=== PATIENT | female | born 1990 | race Asian ===

== ENCOUNTER 2017-04-15 13:12 | Emergency (ER) | payer OTHER ==
[2017-04-15] MEDS ORDERED: NS 0.9% 1000 ML* 1,000 ML IV ONE (15:00)
[2017-04-15] MEDS ORDERED: Ondansetron ODT TAB* 4 MG PO ONE ×2 (15:01→15:40)
[2017-04-15] MEDS ORDERED: Oseltamivir CAP* 75 MG PO ONE (15:39)
[2017-04-15 15:44] VITALS: BP 113/70
--- NOTE | 2017-04-15 17:02 | UC ---
Micheal Hoff Stephanie, scribed for Michele Cleary MD on 04/15/17 at 1539 . FLU HPI - HPI Summary HPI Summary: The pt is a 26 y/o F presenting to with c/o dizziness that began yesterday. The pt reports prior influenza-like symptoms such as fever, body aches, sore throat, nausea, blurred visions when ambulating, abd pain, decreased oral intake and diarrhea that began 1 week ago. The pt denies lightheadedness or blood with the diarrhea. Dizziness is alleviated by rest. - History of Current Complaint Chief Complaint: UCGeneralIllness Stated Complaint: COUGH, CONGESTION C Time Seen by Provider: 04/15/17 14:53 Hx Obtained From: Patient Hx Last Menstrual Period: 03/2017 ?: No Onset/Duration: Lasting Days - 1, Still Present Pain Intensity: 0 Pain Scale Used: 0-10 Numeric Associated Signs & Symptoms: Positive: Diarrhea. Negative: Fever - not presently - Allergy/Home Medications Allergies/Adverse Reactions: Allergies Allergy/AdvReac Type Severity Reaction Status Date / Time Penicillins Allergy Unknown Verified 04/15/17 13:22 Reaction Details PMH/Surg Hx/FS Hx/Imm Hx Previously Healthy: Yes - Pt denies any past medical history. - Surgical History Surgical History: None - Family History Known Family History: Positive: Unknown - Pt denies any medical history. - Social History Occupation: Student Lives: Dormitory/Roommates Alcohol Use: None Substance Use Type: None Smoking Status (MU): Never Smoked Tobacco - Immunization History Most Recent Influenza Vaccination: none Review of Systems Constitutional: Other - dizziness Skin: Negative Eyes: Blurred Vision ENT: Sore Throat Respiratory: Negative Cardiovascular: Negative Gastrointestinal: Abdominal Pain, Diarrhea, Nausea Genitourinary: Negative Motor: Negative Neurovascular: Negative Musculoskeletal: Myalgia Neurological: Negative Psychological: Negative All Other Systems Reviewed And Are Negative: Yes Physical Exam Triage Information Reviewed: Yes Vital Signs: Initial Vital Signs Temp 97.1 F 04/15/17 13:16 Pulse 98 04/15/17 13:16 Resp 14 04/15/17 13:16 BP 110/72 04/15/17 13:16 Pulse Ox 97 04/15/17 13:16 Vital Signs Reviewed: Yes - Additional Comments General: Mildly ill-appearing, no pain distress Skin: warm, color reflects adequate perfusion, dry Head: normal Eyes: EOMI, BRYSON ENT: normal Neck: supple, nontender Respiratory: CTA, breath sounds present Cardiovascular: RRR Abdomen: soft, nontender Bowel: present Musculoskeletal: normal, strength/ROM intact Neurological: normal, sensory/motor intact, A&O x3 Psychological: affect/mood appropriate Flu Course/Dx - Course Course Of Treatment: Medication reviewed. - Differential Dx/Diagnosis Provider Diagnoses: INFLUENZA, DEHYDRATION Discharge - Discharge Plan Condition: Stable Disposition: HOME Prescriptions: Ondansetron ODT TAB* [Zofran 4 MG Odt TAB*] 4 mg PO Q6H PRN #10 tab.odt PRN Reason: Nausea Oseltamivir CAP* [Tamiflu CAP*] 75 mg PO BID #9 cap Patient Education Materials: Dehydration (ED), Influenza (ED) Referrals: [facility] [Provider Group] No Primary Care Phys,[facility] [Primary Care Provider] - Additional Instructions: FOLLOW UP WITH YOUR DOCTOR. GET RECHECKED FOR ANY WORSENING OF YOUR CONDITION OR QUESTIONS OR CONCERNS. The documentation as recorded by the Micheal bess Stephanie accurately reflects the service I personally performed and the decisions made by me, Michele Cleary MD.
== END 2017-04-15 16:28 | disposition home or self-care (01) ==
LOC: UCEAST 13:12
DX: J11.1 Influenza due to unidentified influenza virus with other respiratory manifestations (principal); E86.0 Dehydration; R19.7 Diarrhea, unspecified; Z88.0 Allergy status to penicillin
CPT/HCPCS: 87502; 96360; 99212; A9270-GY; G0463